=== PATIENT | female | born 1965 | race African-American/Black ===

== ENCOUNTER 2017-01-22 11:13 | Emergency (ER) | payer MEDICAID ==
[~2017-01-22] VITALS: Ht 167.6 cm; Wt 100.0 kg
[2017-01-22 11:21] VITALS: BP 180/103
== END 2017-01-22 21:24 | disposition left against medical advice (07) ==
LOC: ER 13:30
DX: Z53.21 Procedure and treatment not carried out due to patient leaving prior to being seen by health care provider (principal)